=== PATIENT | female | born 1955 | race Caucasian/White ===

== ENCOUNTER 2016-12-28 13:53 | Observation (INO) | payer BC, MEDICARE, OTHER ==
[~2016-12-28] VITALS: Ht 160 cm; Wt 75.5 kg
[2016-12-28] VITALS (8 sets, daily range): BP systolic 127–194; BP diastolic 60–93; PULSE 60–82; RESP 17–20; TEMP 97.8–98.2; O2SAT 96–99
[~2016-12-28 13:53] MED LIST: BUPR-197; COUG100S2; ENDO5TAB6; LEVO.05; METF-324; PROM25SU8; ROSI1TAB24; TOPR25TA2; [UNRECOGNIZED DRUG - CODE]; [UNRECOGNIZED DRUG - OTHER]; [UNRECOGNIZED DRUG - OTHER]
--- NOTE | 2016-12-28 14:36 | PD ---
HPI Chief Complaint: Chest Pain Time Seen by Provider: 14:35 Travel History International Travel<30 days: No Contact w/Intl Traveler<30days: No Traveled to known affect area: No History of Present Illness HPI 61-year-old female came to the emergency room with history of left-sided chest pain that started since noon today. Patient points to her left chest just below her left breast. No radiation of the pain. She describes this as a sharp pain. No aggravating or relieving factors. Patient says that last night she had a big argument with her youngest daughter and she cried a lot the entire night. At noon is when she started noticing this pain. No history of shortness of breath, syncopal episode or diaphoresis. No history of acute coronary syndrome or coronary artery disease. Patient is not a smoker. Vitals are stable. Patient was seen by the provider in triage and workup was initiated. She has history of chronic low back pain and uses a patch but says that today if the patch is not really helping her. She is also complaining of nausea. [facility] Past Medical History Narrative Medical List of her past medical, surgical, social and family history has been reviewed from the nursing note. Depression: Yes Diabetes: Yes Diminished Hearing: No Hypertension: Yes Past Surgical History Cholecystectomy: Yes Hysterectomy: Yes Neurologic Surgery: Yes (LOW BACK SURGERY) Social History Alcohol Use: No Tobacco Use: No Allergies-Medications (Allergen,Severity, Reaction): Coded Allergies: Morphine (Verified Allergy, Mild, RASH, 12/28/16) Latex (Verified Allergy, Unknown, rash, 12/28/16) Comments List of her allergies are reviewed from the nursing note. Reported Meds & Prescriptions Reported Meds & Active Scripts Active Reported Butrans Patch 168 HR (Buprenorphine Patch 168 HR) 5 Mcg/Hr Patch 1 Patch T- DERMAL Q7D Aspirin 81 (Aspirin) 81 Mg Tabdr 81 Mg PO DAILY Metoprolol Tartrate 25 Mg Tab 25 Mg PO DAILY Januvia (Sitagliptin Phosphate) 100 Mg Tab 100 Mg PO DAILY Esomeprazole DR 40 Mg Capdr 40 Mg PO DAILY Levothyroxine (Levothyroxine Sodium) 50 Mcg Tab 50 Mcg PO DAILY Ibuprofen 800 Mg Tab 800 Mg PO QID Atorvastatin (Atorvastatin Calcium) 10 Mg Tab 10 Mg PO DAILY Narrative Medication List of her home medications reviewed from the nursing note. Review of Systems Except as stated in HPI: all other systems reviewed are Neg Physical Exam Narrative GENERAL: Awake, alert, moderate distress SKIN: Warm and dry. HEAD: Atraumatic. Normocephalic. EYES: Pupils equal and round. No scleral icterus. No injection or drainage. ENT: No nasal bleeding or discharge. Mucous membranes pink and moist. NECK: Trachea midline. No JVD. CARDIOVASCULAR: Regular rate and rhythm. No murmur appreciated. RESPIRATORY: No accessory muscle use. Clear to auscultation. Breath sounds equal bilaterally. GASTROINTESTINAL: Abdomen soft, non-tender, nondistended. Hepatic and splenic margins not palpable. MUSCULOSKELETAL: No obvious deformities. No clubbing. No cyanosis. No edema. Tenderness on palpation of the left chest wall NEUROLOGICAL: Awake and alert. No obvious cranial nerve deficits. Motor grossly within normal limits. Normal speech. PSYCHIATRIC: Appropriate mood and affect; insight and judgment normal. Data Data Last Documented VS Vital Signs Date Time Temp Pulse Resp B/P Pulse Ox O2 Delivery O2 Flow Rate FiO2 12/28/16 14:30 81 17 98 Room Air 12/28/16 13:58 98.2 194/93 Orders Electrocardiogram (12/28/16 14:00) Complete Blood Count With Diff (12/28/16 14:00) Basic Metabolic Panel (Bmp) (12/28/16 14:00) Ckmb (Isoenzyme) Profile (12/28/16 14:00) Troponin I (12/28/16 14:00) Chest, Single Ap (12/28/16 14:00) Aspirin Chew (Aspirin Chew) (12/28/16 15:00) Ketorolac Inj (Toradol Inj) (12/28/16 15:00) Ondansetron Inj (Zofran Inj) (12/28/16 15:15) CKMB (12/28/16 14:30) CKMB% (12/28/16 14:30) Admit Order (Ed Use Only) (12/28/16 15:32) Labs Laboratory Tests Test 12/28/16 12/28/16 14:30 15:10 White Blood Count 5.5 TH/MM3 Red Blood Count 4.28 MIL/MM3 Hemoglobin 12.7 GM/DL Hematocrit 36.1 % Mean Corpuscular Volume 84.4 FL Mean Corpuscular Hemoglobin 29.5 PG Mean Corpuscular Hemoglobin 35.0 % Concent Red Cell Distribution Width 12.9 % Platelet Count 157 TH/MM3 Mean Platelet Volume 8.6 FL Neutrophils (%) (Auto) 44.4 % Lymphocytes (%) (Auto) 42.5 % Monocytes (%) (Auto) 10.2 % Eosinophils (%) (Auto) 2.5 % Basophils (%) (Auto) 0.4 % Neutrophils # (Auto) 2.5 TH/MM3 Lymphocytes # (Auto) 2.3 TH/MM3 Monocytes # (Auto) 0.6 TH/MM3 Eosinophils # (Auto) 0.1 TH/MM3 Basophils # (Auto) 0.0 TH/MM3 CBC Comment DIFF FINAL Differential Comment Sodium Level 137 MEQ/L Potassium Level 3.8 MEQ/L Chloride Level 103 MEQ/L Carbon Dioxide Level 23.8 MEQ/L Anion Gap 10 MEQ/L Blood Urea Nitrogen 15 MG/DL Creatinine 0.77 MG/DL Estimat Glomerular Filtration 77 ML/MIN Rate Random Glucose 306 MG/DL Calcium Level 9.1 MG/DL Total Creatine Kinase 210 U/L 202 U/L Creatine Kinase MB 1.0 NG/ML Creatine Kinase MB % 0.5 % Troponin I LESS THAN 0.02 LESS THAN 0.02 NG/ML NG/ML MDM Medical Decision Making Medical Screen Exam Complete: Yes Emergency Medical Condition: Yes Medical Record Reviewed: Yes Interpretation(s) Twelve-lead EKG was reviewed by me. Normal sinus rhythm, left axis deviation, anteroseptal T-wave inversions. Heart rate of 68 bpm. Differential Diagnosis ACS, non-STEMI, chest wall pain Narrative Course 3:05 PM awaiting for the blood test results to come back. I have ordered 2 baby aspirin's to be sure that the patient. I have ordered IV Toradol for her chest pain and back pain in the meanwhile. Patient does have some risk factors including age and hypertension. 3:33 PM blood test results of back and within normal limits. I will admit her to the chest pain center given her risk factors. Patient said her last stress test was 2 years ago in [place]. Patient is comfortable with this plan. Procedures EKG Prior to Arrival: Yes Diagnosis Primary Impression: Chest pain Qualified Code: R07.9 - Chest pain, unspecified type Admitting Information Admitting Physician Requests: Observation Kelsey Arroyo MD Dec 28, 2016 14:36
[2016-12-28] MEDS ORDERED: METO25TA3 PO (14:42)
[2016-12-28] MEDS ORDERED: IBUP800T23 PO (14:42)
[2016-12-28] MEDS ORDERED: SITA1TAB2 PO (14:42)
[2016-12-28] MEDS ORDERED: ASPI-110 PO (14:42)
[2016-12-28] MEDS ORDERED: ATOR10TA15 PO (14:42)
[2016-12-28] MEDS ORDERED: BUTR5DIS T-DERMAL (14:42)
[2016-12-28] MEDS ORDERED: LEVO50TA4 PO (14:42)
[2016-12-28] MEDS ORDERED: ESOM1CAP16 PO (14:42)
--- NOTE | 2016-12-28 14:49 | RADRPT ---
EXAM DATE/TIME: 12/28/2016 14:35 [facility] COMPARISON: No previous studies available for comparison. INDICATIONS : Lower left chest pain. MEDICAL HISTORY : Asthma. SURGICAL HISTORY : None. ENCOUNTER: Initial ACUITY: 1 day PAIN SCORE: 8/10 LOCATION: Left lower chest FINDINGS: A single view of the chest demonstrates the lungs to be symmetrically aerated without evidence of mas s, infiltrate or effusion. The cardiomediastinal contours are unremarkable. Osseous structures are intact. CONCLUSION: No acute disease. Marcus Khan MD FACR on December 28, 2016 at 14:47 Board Certified Radiologist. This report was verified electronically.
[2016-12-28] MEDS ORDERED: ASPIRIN 81 MG CHEW TAB CHEW ONE (15:00)
[2016-12-28] MEDS ORDERED: KETOROLAC TROMETHAMINE 30 MG/ML (IVP) VIAL IV PUSH ONE (15:00)
[2016-12-28 15:01] LABS: AUTOMATED NEUTROPHIL # 2.5 TH/MM3 (1.8-7.7); BASOPHIL % 0.4 % (0.0-2.0); EOSINOPHIL # 0.1 TH/MM3 (0-0.4); EOSINOPHIL % 2.5 % (0.0-4.0); HEMATOCRIT 36.1 % (35.0-46.0); HEMO FLAGS DIFF FINAL; LYMPH % 42.5 % (9.0-44.0); LYMPHOCYTE # 2.3 TH/MM3 (1.0-4.8); MEAN CELL VOLUME 84.4 FL (80.0-100.0); MEAN CORPUSCULAR HEMOGLOBIN 29.5 PG (27.0-34.0); MONO % 10.2 % (0.0-8.0); NEUT % 44.4 % (16.0-70.0); PLATELET COUNT 157 TH/MM3 (150-450); RED BLOOD COUNT 4.28 MIL/MM3 (4.00-5.30); RED CELL DISTRIBUTION WIDTH 12.9 % (11.6-17.2); WHITE BLOOD COUNT 5.5 TH/MM3 (4.0-11.0)
[2016-12-28 15:07] LABS: ANION GAP 10 MEQ/L (5-15); BICARBONATE 23.8 MEQ/L (21.0-32.0); BLOOD UREA NITROGEN 15 MG/DL (7-18); CHLORIDE 103 MEQ/L (98-107); GLOMERULAR FILTRATION RATE 77 ML/MIN (>89); POTASSIUM 3.8 MEQ/L (3.5-5.1); SODIUM (NA) 137 MEQ/L (136-145)
[2016-12-28 15:10] LABS: CREATINE KINASE 210 U/L (26-192)
[2016-12-28] MEDS ORDERED: ONDANSETRON HCL 4 MG/2 ML VIAL IV PUSH ONE (15:15)
[2016-12-28] MEDS ORDERED: SODIUM CHLORIDE 0.9% FLUSH 5 ML FLUSH IVF PRN (16:00)
[2016-12-28] MEDS ORDERED: ACETAMINOPHEN 500 MG CPLT PO PRN (16:00)
[2016-12-28] MEDS ORDERED: ONDANSETRON HCL 4 MG/2 ML VIAL IV PRN (16:00)
[2016-12-28] MEDS ORDERED: ALPRAZolam 0.25 MG TAB PO PRN (16:00)
[2016-12-28] MEDS ORDERED: GLUCAGON 1 MG/ML VIAL IM/SQ PRN (16:15)
[2016-12-28] MEDS ORDERED: cloNIDine HCL 0.1 MG TAB PO PRN (16:15)
[2016-12-28] MEDS ORDERED: DEXTROSE 50% IN WATER 50 ML VIAL(D50) IV PRN (16:15)
[2016-12-28] MEDS ORDERED: RESP: ALBUTEROL 2.5 MG/IPRATROPIUM 0.5 MG NEB (PRN) INH (16:15)
--- NOTE | 2016-12-28 16:21 | HHI.HP ---
[facility] Primary Care Physician Nick Bourgeois MD Chief Complaint Chest pain History of Present Illness This is a 61-year-old female that presents to the ED with a complaint of a chest discomfort that began around noon today. It is still there. She states that there is a tender spot to touch. She states it feels like a broken rib. Patient states she's had issues like this in the past. She then states "I get this all the time when I get upset." She had been crying all night long after getting into an argument with her daughter yesterday. In the past she states she always goes to the hospital when she has the discomfort is although she readily admits to having him resume regularly at least once a week for several years. She has recently moved to this area. No associated shortness of breath , nausea, or diaphoresis. Denies history of CAD. She states that she has followed up with a technical analyst on annual basis for some time and has a chemical stress test and they have always been normal. Review of Systems General: Patient denies fevers, chills recent, and recent travel HEENT: Patient denies headache, sore throat, difficulty swallowing. Cardiovascular: Has the chest discomfort as mentioned above. Denies sensation of heart beating rapidly or irregularly. No syncope. Respiratory: Denies shortness of breath or inspirational chest discomfort. Denies coughing wheezing or hemoptysis. GI: Patient denies nausea, vomiting, diarrhea, abdominal pain, bloody stools. Musculoskeletal: Patient denies joint pain or edema. Denies calf pain or edema. Neurovascular: Patient denies numbness, tingling, weakness in extremities. Denies headache. Endocrine: Denies polyuria and polydipsia. Hematologic: Denies easy bruising. Skin: Denies rash or itching. Past Family Social History Allergies: Coded Allergies: Morphine (Verified Allergy, Mild, RASH, 12/28/16) Latex (Verified Allergy, Unknown, rash, 12/28/16) Past Medical History Hypertension, hyperlipidemia, diabetes, anxiety, depression, and chronic back pain. Denies known CAD. Past Surgical History Noncontributory. Reported Medications Reported Meds & Active Scripts Active Reported Butrans Patch 168 HR (Buprenorphine Patch 168 HR) 5 Mcg/Hr Patch 1 Patch T- DERMAL Q7D Aspirin 81 (Aspirin) 81 Mg Tabdr 81 Mg PO DAILY Metoprolol Tartrate 25 Mg Tab 25 Mg PO DAILY Januvia (Sitagliptin Phosphate) 100 Mg Tab 100 Mg PO DAILY Esomeprazole DR 40 Mg Capdr 40 Mg PO DAILY Levothyroxine (Levothyroxine Sodium) 50 Mcg Tab 50 Mcg PO DAILY Ibuprofen 800 Mg Tab 800 Mg PO QID Atorvastatin (Atorvastatin Calcium) 10 Mg Tab 10 Mg PO DAILY Active Ordered Medications Current Medications Medications (Trade) Dose Ordered Sig/Saran Route Start Time Stop Time Status Last Admin (NS Flush) 2 ml UNSCH PRN IVF 12/28/16 16:00 UNV (NS Flush) 2 ml BID IVF 12/28/16 21:00 UNV (Tylenol) 500 mg Q4H PRN PO 12/28/16 16:00 UNV (Zofran Inj) 4 mg Q6H PRN IV 12/28/16 16:00 UNV (Protonix) 40 mg DAILY PO 12/28/16 16:00 UNV (Aspirin) 325 mg DAILY PO 12/29/16 09:00 UNV (Xanax) 0.25 mg Q8H PRN PO 12/28/16 16:00 UNV (Lipitor) 10 mg DAILY PO 12/29/16 09:00 UNV (Synthroid) 50 mcg DAILY PO 12/29/16 09:00 UNV (Lopressor) 25 mg DAILY PO 12/29/16 09:00 UNV Family History Denies family history of CAD. Social History Patient does not smoke, drink alcohol, or use illicit drugs. Physical Exam Vital Signs Vital Signs Date Time Temp Pulse Resp B/P Pulse Ox O2 Delivery O2 Flow Rate FiO2 12/28/16 16:01 17 12/28/16 16:00 97.8 82 17 134/65 99 Room Air 12/28/16 14:30 81 17 98 Room Air 12/28/16 13:58 98.2 75 18 194/93 96 Physical Exam GENERAL: This is a well-nourished, well-developed patient, in no apparent distress. Patient speaks in clear complete sentences. Patient is pleasant however she begins to cry when discussing her argument with her daughter. HEENT: Head is atraumatic and normocephalic. Neck is supple without lymphadenopathy and trachea is midline. No JVD or carotid bruits. CARDIOVASCULAR: Regular rate and rhythm without murmurs, gallops, or rubs. RESPIRATORY: Clear to auscultation. Breath sounds equal bilaterally. No wheezes , rales, or rhonchi. Chest wall is tender in the left lower chest wall area. This is worsening the discomfort that she presented to the ED for. No use of accessory muscles. GASTROINTESTINAL: Abdomen is nontender, nondistended. Abdomen soft. No obvious pulsatile mass or bruit. No CVA tenderness. Strong femoral pulses bilaterally. Normal bowel sounds in all quadrants. MUSCULOSKELETAL: Patient is moving upper and lower extremities freely. No calf tenderness or edema, no Homans sign. Strong pulses in upper and lower extremities. NEUROLOGICAL: Patient is alert and oriented. Cranial nerves 2-12 are grossly intact. No focal deficits and speech is clear. SKIN: No rash and turgor is normal. Laboratory Laboratory Tests Test 12/28/16 14:30 White Blood Count 5.5 Red Blood Count 4.28 Hemoglobin 12.7 Hematocrit 36.1 Mean Corpuscular Volume 84.4 Mean Corpuscular Hemoglobin 29.5 Mean Corpuscular Hemoglobin 35.0 Concent Red Cell Distribution Width 12.9 Platelet Count 157 Mean Platelet Volume 8.6 Neutrophils (%) (Auto) 44.4 Lymphocytes (%) (Auto) 42.5 Monocytes (%) (Auto) 10.2 Eosinophils (%) (Auto) 2.5 Basophils (%) (Auto) 0.4 Neutrophils # (Auto) 2.5 Lymphocytes # (Auto) 2.3 Monocytes # (Auto) 0.6 Eosinophils # (Auto) 0.1 Basophils # (Auto) 0.0 CBC Comment DIFF FINAL Differential Comment Sodium Level 137 Potassium Level 3.8 Chloride Level 103 Carbon Dioxide Level 23.8 Anion Gap 10 Blood Urea Nitrogen 15 Creatinine 0.77 Estimat Glomerular Filtration 77 Rate Random Glucose 306 Calcium Level 9.1 Total Creatine Kinase 210 Creatine Kinase MB 1.0 Creatine Kinase MB % 0.5 Troponin I LESS THAN 0.02 Result Diagram: 12/28/16 1430 12/28/16 1430 Imaging Last 24 hours Impressions Chest X-Ray 12/28/16 1400 Signed Impressions: Service Date/Time: Wednesday, December 28, 2016 14:35 - CONCLUSION: No acute disease. Marcus Khan MD FACR Course Initial EKG has sinus rhythm with nonspecific anterolateral ST-T changes. Assessment and Plan Assessment and Plan * Chest pain: Patient will continue to have serial cardiac enzymes and EKGs for ruling out purposes. Her discomfort appears musculoskeletal and also she has had the same type of discomfort for several years at least on a weekly basis and is always had normal stress test which she states she's had at least once a year. She has been seen by Dr. Justin Manrique of cardiology and the chest pain center. She will spend the evening in the chest pain center and if she does rule out she will then proceed with a chemical stress test. She will be discharged home with instructions to follow local physician if her stress test were to be nonischemic. * Hypertension: Continue current medication. * Hyperlipidemia: Continue current medication. * Diabetes: Patient will be on sliding scale coverage while in the chest pain center. She'll be on a diabetic diet until she is nothing by mouth. She should continue her current medications and follow diabetic diet at discharge. Patient is stable at this time. She is agreeable to this plan. Reece Talamantes Dec 28, 2016 16:21
[2016-12-28] MEDS: PANTOPRAZOLE SOD 40 MG DELAYED RELEASE TAB PO SCH (17:09)
[2016-12-28 18:01] LABS: CREATINE KINASE 202 U/L (26-192)
[2016-12-28] MEDS: INSULIN ASPART SUPPLEMENTAL SCALE SQ SCH (21:17)
[2016-12-28] MEDS: SODIUM CHLORIDE 0.9% FLUSH 5 ML FLUSH IVF SCH (21:19)
[2016-12-28 22:18] LABS: CREATINE KINASE 195 U/L (26-192)
[2016-12-29 00:16] VITALS: PULSE 72
[2016-12-29 03:15] VITALS: BP 118/62; PULSE 62; RESP 18; TEMP 98.3; O2SAT 96
[2016-12-29 04:01] VITALS: PULSE 66
[2016-12-29] MEDS ORDERED: LEVOTHYROXINE SODIUM 50 MCG TAB PO SCH (06:00)
[2016-12-29] MEDS: INSULIN ASPART SUPPLEMENTAL SCALE SQ SCH ×2 (06:06→12:48)
[2016-12-29 07:27] VITALS: BP 152/72; PULSE 70; RESP 20; TEMP 97.8; O2SAT 98
--- NOTE | 2016-12-29 07:42 | EKG ---
Date Performed: 12/28/2016 Time Performed: 17:16:30 PTAGE: 61 years EKG: SINUS BRADYCARDIA MODERATE T-WAVE ABNORMALITY, CONSIDER ANTEROLATERAL ISCHEMIA ABNORMAL ECG Since PREVIOUS TRACING , no significant change noted PREVIOUS TRACIN12/28/2016 14.07 DOCTOR: Gini Armendariz Interpretating Date/Time 12/29/2016 07:41:28
[2016-12-29] MEDS: PANTOPRAZOLE SOD 40 MG DELAYED RELEASE TAB PO SCH (08:56)
[2016-12-29] MEDS: SODIUM CHLORIDE 0.9% FLUSH 5 ML FLUSH IVF SCH (08:57)
[2016-12-29] MEDS ORDERED: METOPROLOL TARTRATE 25 MG TAB PO SCH (09:00)
[2016-12-29] MEDS ORDERED: ASPIRIN 325 MG TAB PO SCH (09:00)
[2016-12-29] MEDS ORDERED: ATORVASTATIN 10 MG TAB PO SCH (09:00)
[2016-12-29 10:30] VITALS: PULSE 70
[2016-12-29] MEDS ORDERED: REGADENOSON INJ 0.4 MG/5 ML SYR ONE (11:07)
--- NOTE | 2016-12-29 13:23 | RADRPT ---
EXAM DATE/TIME: 12/29/2016 10:46 [facility] COMPARISON: No previous studies available for comparison. INDICATIONS : Substernal chest pain. Angina. DOSE: 26.6 mCi Tc99m Myoview at stress. 8.2 mCi Tc99m Myoview at rest. 0.4 mg Lexiscan STRESS SYMPTOMS: Chest pain, nausea and headache. EJECTION FRACTION: 67% MEDICAL HISTORY : Hyperparathyroidism. Diabetes mellitus type 2. Anxiety. SURGICAL HISTORY : Cholecystectomy. Hysterectomy. ENCOUNTER: Initial ACUITY: 1 day PAIN SCALE: 6/10 LOCATION: Substernal chest TECHNIQUE: The patient underwent pharmacologic stress with infusion of prescribed dose. Continuous ECG tracing was monitored during stress. Gated SPECT imaging was performed after stress and conventional SPECT i maging was performed at rest. The examination was performed on a SPECT/CT scanner, both attenuation and non-corrected datasets were reviewed. FINDINGS: DISTRIBUTION: The maximum perfused segment at stress is in the midanterior wall. PERFUSION STUDY: The pattern of perfusion at stress is within normal limits. GATED STUDY: There is intact wall motion and thickening without hypokinetic or dyskinetic segments. CONCLUSION: Normal examination. RISK CATEGORY: Low (<1% Annual Mortality Rate) Toney Francis MD on December 29, 2016 at 13:21 Board Certified Radiologist. This report was verified electronically.
--- NOTE | 2016-12-29 13:25 | HHI.DCPOC ---
Discharge Care Plan Diagnosis: (1) Chest pain (2) Hypertension (3) Hyperlipidemia (4) DM (diabetes mellitus) Goals to Promote Your Health * To prevent worsening of your condition and complications * To maintain your health at the optimal level Directions to Meet Your Goals Take your medications as prescribed Follow your dietary instruction Follow activity as directed Keep your appointments as scheduled Take your immunizations and boosters as scheduled If your symptoms worsen call your PCP, if no PCP go to Urgent Care Center or Emergency Room Smoking is Dangerous to Your Health. Avoid second hand smoke Call the 24-hour hour crisis hotline for domestic abuse at Reece Talamantes Dec 29, 2016 13:25
--- NOTE | 2016-12-29 16:59 | EKG ---
Date Performed: 12/28/2016 Time Performed: 20:24:59 PTAGE: 61 years EKG: Sinus rhythm MODERATE T-WAVE ABNORMALITY, CONSIDER ANTERIOR ISCHEMIA ABNORMAL ECG Since PREVIOUS TRACING , no significant change noted PREVIOUS TRACIN12/28/2016 17.16 DOCTOR: Gini Armendariz Interpretating Date/Time 12/29/2016 16:57:12
--- NOTE | 2016-12-29 17:00 | TR ---
Date Performed: 12/29/2016 Time Performed: 11:19:03 DOCTOR: Gini Armendariz DRUG LIST: CLINICAL HISTORY: REASON FOR TEST: CHEST PAIN REASON FOR ENDING: OBSERVATION: CONCLUSION: Lexiscan stress test was performed under standard four minute protocol. Radionuclid e was injected one minute prior to ending the test. No electrocardiographic abormalities were present to suggest ischemia. Nuclear imaging and interpretation are pending. COMMENTS:
--- NOTE | 2017-01-04 13:38 | EKG ---
Date Performed: 12/28/2016 Time Performed: 14:07:50 PTAGE: 61 years EKG: Sinus rhythm NONSPECIFIC T-WAVE ABNORMALITY BORDERLINE ECG NO PREVIOUS TRACING DOCTOR: Justin Manrique Interpretating Date/Time 01/04/2017 13:37:07
== END 2016-12-29 14:35 | disposition home or self-care (01) ==
LOC: NEPA 13:53 → NEDA 15:34 → NEPHCDU 17:35 → NEDA 12-29 01:13
PROVIDERS: ADMIT Internal Medicine Cardiovascular Disease; ATTEND Internal Medicine Cardiovascular Disease
DX: R07.9 Chest pain, unspecified (principal); M54.5 Low back pain; G89.29 Other chronic pain; R11.0 Nausea; E11.9 Type 2 diabetes mellitus without complications; I10 Essential (primary) hypertension; Z79.899 Other long term (current) drug therapy; Z79.84 Long term (current) use of oral hypoglycemic drugs; R94.31 Abnormal electrocardiogram [ECG] [EKG]
CPT/HCPCS: 71010; 78452; 80048; 82550; 82552; 82948; 84484; 85025; 93005; 93017; 96374; 96375; 99285; A9502; G0378; J1815; J1885; J2405; J2785

== ENCOUNTER 2017-01-17 10:09 | Emergency (ER) | payer BC ==
[~2017-01-17] VITALS: Ht 160 cm; Wt 76.0 kg
[~2017-01-17 10:09] MED LIST changes: +ASPI-110 PO; +ATOR10TA15 PO; -BUPR-197; +BUTR5DIS T-DERMAL; -COUG100S2; -ENDO5TAB6; +ESOM1CAP16 PO; +IBUP800T23 PO; -LEVO.05; +LEVO50TA4 PO; -METF-324; +METO25TA3 PO; -PROM25SU8; -ROSI1TAB24; +SITA1TAB2 PO; -TOPR25TA2; -[UNRECOGNIZED DRUG - CODE]; -[UNRECOGNIZED DRUG - OTHER]; -[UNRECOGNIZED DRUG - OTHER]
[2017-01-17 10:10] VITALS: BP 164/74; PULSE 71; RESP 16; TEMP 98.2; O2SAT 98
[2017-01-17 10:18] VITALS: BP 158/74; PULSE 69; RESP 16; TEMP 98.2; O2SAT 98
[2017-01-17] MEDS ORDERED: METF500T PO (10:27)
[2017-01-17] MEDS ORDERED: IBUP800T23 PO (10:28)
[2017-01-17] MEDS ORDERED: SODIUM CHLORIDE 0.9% FLUSH 5 ML FLUSH IVF PRN (10:30)
[2017-01-17] MEDS ORDERED: METO25TA3 PO (10:31)
[2017-01-17] MEDS ORDERED: XOPEAER4 INH (10:36)
[2017-01-17] MEDS ORDERED: CITA10TA4 PO (10:36)
[2017-01-17] MEDS ORDERED: ARIP1TAB11 PO (10:36)
[2017-01-17 10:37] VITALS: O2SAT 98
[2017-01-17 10:41] VITALS: BP_SYST 138; BP_SYST 149; BP_DIAS 68; BP_DIAS 72
--- NOTE | 2017-01-17 10:43 | RADRPT ---
EXAM DATE/TIME: 01/17/2017 10:33 [facility] COMPARISON: CHEST SINGLE AP, December 28, 2016, 14:35. INDICATIONS : Chest Pain, Short of Breath. MEDICAL HISTORY : Asthma. Hyperparathyroidism. Diabetes mellitus type 2. SURGICAL HISTORY : Cholecystectomy. Hysterectomy. ENCOUNTER: Initial ACUITY: 1 day PAIN SCORE: 7/10 LOCATION: Bilateral chest FINDINGS: A single view of the chest demonstrates the lungs to be symmetrically aerated without evidence of mas s, infiltrate or effusion. The cardiomediastinal contours are unremarkable. Osseous structures are intact. CONCLUSION: No acute disease. Derrell Haney MD on January 17, 2017 at 10:42 Board Certified Radiologist. This report was verified electronically.
[2017-01-17] MEDS ORDERED: ASPIRIN 325 MG TAB PO ONE (10:45)
[2017-01-17] MEDS ORDERED: NITROGLYCERIN 0.4 MG SL 25 TABS/BTL SL ONE (10:45)
[2017-01-17 11:10] LABS: AUTOMATED NEUTROPHIL # 4.2 TH/MM3 (1.8-7.7); BASOPHIL # 0.1 TH/MM3 (0-0.2); BASOPHIL % 0.8 % (0.0-2.0); EOSINOPHIL # 0.1 TH/MM3 (0-0.4); HEMATOCRIT 36.9 % (35.0-46.0); HEMO FLAGS DIFF FINAL; LYMPH % 28.4 % (9.0-44.0); LYMPHOCYTE # 1.9 TH/MM3 (1.0-4.8); MEAN CELL VOLUME 84.8 FL (80.0-100.0); MEAN CORPUSCULAR HEMOGLOBIN 28.9 PG (27.0-34.0); MEAN CORPUSCULAR HGB CONC 34.1 % (32.0-36.0); MONO % 7.4 % (0.0-8.0); NEUT % 61.4 % (16.0-70.0); PLATELET COUNT 161 TH/MM3 (150-450); RED BLOOD COUNT 4.35 MIL/MM3 (4.00-5.30); RED CELL DISTRIBUTION WIDTH 13.4 % (11.6-17.2); WHITE BLOOD COUNT 6.8 TH/MM3 (4.0-11.0)
[2017-01-17] MEDS ORDERED: ONDANSETRON HCL 4 MG/2 ML VIAL IV PUSH ONE (11:15)
[2017-01-17 11:20] LABS: PROTHROMBIN TIME - PATIENT 10.6 SEC (9.8-11.6)
[2017-01-17 11:21] LABS: APTT (PATIENT) 23.2 SEC (24.3-30.1)
[2017-01-17 11:39] LABS: ALKALINE PHOSPHATASE 98 U/L (45-117); ALT (GPT) 22 U/L (10-53); ANION GAP 13 MEQ/L (5-15); AST (GOT) 36 U/L (15-37); BICARBONATE 22.7 MEQ/L (21.0-32.0); BLOOD UREA NITROGEN 16 MG/DL (7-18); CHLORIDE 105 MEQ/L (98-107); CREATINE KINASE 133 U/L (26-192); GLOMERULAR FILTRATION RATE 68 ML/MIN (>89); MAGNESIUM 1.5 MG/DL (1.5-2.5); SODIUM (NA) 141 MEQ/L (136-145); TOTAL BILIRUBIN ADULT 0.4 MG/DL (0.2-1.0)
[2017-01-17 11:51] LABS: CKMB LESS THAN 0.5 NG/ML (0.5-3.6)
[2017-01-17 11:54] LABS: POTASSIUM 4.1 MEQ/L (3.5-5.1)
--- NOTE | 2017-01-17 12:16 | EKG ---
Date Performed: 01/17/2017 Time Performed: 10:17:24 PTAGE: 61 years EKG: Sinus rhythm Nonspecific T wave changes ABNORMAL ECG INTERPRETATION BASED ON A DEFAULT AGE OF 40 YEARS No signifi cant change from prior electrocardiogram. PREVIOUS TRACING : 12/28/2016 20.24 DOCTOR: Godwin Yung Interpretating Date/Time 01/17/2017 12:14:17
[2017-01-17 12:36] VITALS: BP 131/68; PULSE 58; RESP 14; O2SAT 98
--- NOTE | 2017-01-17 12:57 | PD ---
HPI Chief Complaint: Chest Pain Time Seen by Provider: 10:22 Travel History International Travel<30 days: No Contact w/Intl Traveler<30days: No Traveled to known affect area: No History of Present Illness HPI 61-year-old female presents with intermittent sharp pain in her chest with nonbloody emesis and intermittent headache. She states that she was here with this in December and had a negative stress test. She states 2 years ago she had a heart catheterization in [place] that was normal when she also had chest pain. She denies following with a electric meter technician currently. She denies taking an aspirin yet today. She states her headache is nearly resolved but she is concerned about the pain in her chest today. She states that she has no specific modifying factors. She denies any recent travel or history of blood clots. Quality Sharp. Severity is moderate. PFSH Past Medical History Depression: Yes Heart Rhythm Problems: No Cardiac Catheterization: No Cardiovascular Problems: Yes High Cholesterol: No Chest Pain: Yes Congestive Heart Failure: No Diabetes: Yes Patient Takes Glucophage: Yes Diminished Hearing: No Hypertension: Yes Thyroid Disease: Yes ?: Not Past Surgical History Cholecystectomy: Yes Coronary Artery Bypass Graft: No Hysterectomy: Yes Neurologic Surgery: Yes (repair of brain aneurysm) Social History Alcohol Use: No Tobacco Use: No Substance Use: No Allergies-Medications (Allergen,Severity, Reaction): Coded Allergies: Morphine (Verified Allergy, Mild, RASH, 01/17/17) Latex (Verified Allergy, Unknown, rash, 01/17/17) Reported Meds & Prescriptions Reported Meds & Active Scripts Active Reported Citalopram (Citalopram Hydrobromide) 10 Mg Tab 10 Mg PO DAILY Aripiprazole 5 Mg Tab 5 Mg PO HS Xopenex Hfa 15 GM Inh (Levalbuterol 15 GM Inh) 45 Mcg/Act Aer 45 Mcg INH DAILY Shake well before using. (1 puff = 45 mcg) Metoprolol Tartrate 25 Mg Tab 25 Mg PO BID Ibuprofen 800 Mg Tab 800 Mg PO BID PRN Metformin (Metformin HCl) 500 Mg Tab 500 Mg PO BID With meals Butrans Patch 168 HR (Buprenorphine Patch 168 HR) 5 Mcg/Hr Patch 1 Patch T- DERMAL Q7D Aspirin 81 (Aspirin) 81 Mg Tabdr 81 Mg PO DAILY Januvia (Sitagliptin Phosphate) 100 Mg Tab 100 Mg PO DAILY Esomeprazole DR 40 Mg Capdr 40 Mg PO DAILY Levothyroxine (Levothyroxine Sodium) 50 Mcg Tab 50 Mcg PO DAILY Atorvastatin (Atorvastatin Calcium) 10 Mg Tab 10 Mg PO DAILY Review of Systems Except as stated in HPI: all other systems reviewed are Neg Physical Exam Narrative GENERAL: Well-nourished, well-developed patient. SKIN: Warm and dry. HEAD: Normocephalic and atraumatic. EYES: No injection or drainage. ENT: No nasal drainage noted. NECK: Supple, trachea midline. CARDIOVASCULAR: Regular rate and rhythm RESPIRATORY: Breath sounds equal bilaterally. No accessory muscle use. GASTROINTESTINAL: Abdomen soft, non-tender, nondistended. EXTREMITIES: No edema. NEUROLOGICAL: Awake and alert. Motor and sensory grossly within normal limits. Normal speech. Data Data Last Documented VS Vital Signs Date Time Temp Pulse Resp B/P Pulse Ox O2 Delivery O2 Flow Rate FiO2 01/17/17 12:36 58 14 131/68 98 Room Air 01/17/17 10:18 98.2 Orders Electrocardiogram (01/17/17 10:23) B-Type Natriuretic Peptide (01/17/17 10:23) Ckmb (Isoenzyme) Profile (01/17/17 10:23) Complete Blood Count With Diff (01/17/17 10:23) Comprehensive Metabolic Panel (01/17/17 10:23) Magnesium (Mg) (01/17/17 10:23) Prothrombin Time / Inr (Pt) (01/17/17 10:23) Act Partial Throm Time (Ptt) (01/17/17 10:23) Troponin I (01/17/17 10:23) Chest, Single Ap (01/17/17 10:23) Ecg Monitoring (01/17/17 10:23) Bilateral Bp Monitoring (01/17/17 10:23) Iv Access Insert/Monitor (01/17/17 10:23) Oximetry (01/17/17 10:23) Sodium Chloride 0.9% Flush (Ns Flush) (01/17/17 10:30) Aspirin (Aspirin) (01/17/17 10:45) Nitroglycerin Sl (Nitrostat Sl) (01/17/17 10:45) Ondansetron Inj (Zofran Inj) (01/17/17 11:15) CKMB (01/17/17 11:00) CKMB% (01/17/17 11:00) Electrocardiogram (01/17/17 14:00) Ckmb (Isoenzyme) Profile (01/17/17 14:00) Troponin I (01/17/17 14:00) Labs Laboratory Tests Test 01/17/17 01/17/17 11:00 12:40 White Blood Count 6.8 TH/MM3 Red Blood Count 4.35 MIL/MM3 Hemoglobin 12.6 GM/DL Hematocrit 36.9 % Mean Corpuscular Volume 84.8 FL Mean Corpuscular Hemoglobin 28.9 PG Mean Corpuscular Hemoglobin 34.1 % Concent Red Cell Distribution Width 13.4 % Platelet Count 161 TH/MM3 Mean Platelet Volume 8.7 FL Neutrophils (%) (Auto) 61.4 % Lymphocytes (%) (Auto) 28.4 % Monocytes (%) (Auto) 7.4 % Eosinophils (%) (Auto) 2.0 % Basophils (%) (Auto) 0.8 % Neutrophils # (Auto) 4.2 TH/MM3 Lymphocytes # (Auto) 1.9 TH/MM3 Monocytes # (Auto) 0.5 TH/MM3 Eosinophils # (Auto) 0.1 TH/MM3 Basophils # (Auto) 0.1 TH/MM3 CBC Comment DIFF FINAL Differential Comment Prothrombin Time 10.6 SEC Prothromb Time International 1.0 RATIO Ratio Activated Partial 23.2 SEC Thromboplast Time Sodium Level 141 MEQ/L Potassium Level 4.1 MEQ/L Chloride Level 105 MEQ/L Carbon Dioxide Level 22.7 MEQ/L Anion Gap 13 MEQ/L Blood Urea Nitrogen 16 MG/DL Creatinine 0.85 MG/DL Estimat Glomerular Filtration 68 ML/MIN Rate Random Glucose 218 MG/DL Calcium Level 8.8 MG/DL Magnesium Level 1.5 MG/DL Total Bilirubin 0.4 MG/DL Aspartate Amino Transf 36 U/L (AST/SGOT) Alanine Aminotransferase 22 U/L (ALT/SGPT) Alkaline Phosphatase 98 U/L Total Creatine Kinase 133 U/L 110 U/L Creatine Kinase MB LESS THAN 0.5 NG/ML Troponin I LESS THAN 0.02 LESS THAN 0.02 NG/ML NG/ML B-Type Natriuretic Peptide 7 PG/ML Total Protein 7.9 GM/DL Albumin 3.6 GM/DL MDM Medical Decision Making Medical Screen Exam Complete: Yes Emergency Medical Condition: Yes Medical Record Reviewed: Yes (past history confirmed) Interpretation(s) CBC & BMP Diagram 01/17/17 11:00 Last 24 hours Impressions Chest X-Ray 01/17/17 1023 Signed Impressions: Service Date/Time: Tuesday, January 17, 2017 10:33 - CONCLUSION: No acute disease. Derrell Haney MD EKG shows T-wave inversion laterally which is unchanged from prior without new changes Repeat EKG is unchanged Differential Diagnosis Musculoskeletal, gastritis, depression, atypical cardiac Narrative Course Will check blood work, chest x-ray, EKG ER workup no acute, will discuss with cardiology for outpatient follow-up Repeat enzymes are negative, Patient denies any new complaints and states that they are feeling better. Patient happy with care, all questions answered. Patient knows that follow up is incumbent on them and to return to the emergency room immediately if new or worsening symptoms develop. Patient given strict return precautions, vitals reviewed and are normal, agrees to further workup as an outpatient. Physician Communication Physician Communication dr cabrera agrees to discharge if delta troponin is negative Diagnosis Primary Impression: Chest pain Qualified Code: R07.9 - Chest pain, unspecified type Patient Instructions: General Instructions Additional Instructions: Return as needed, Tylenol as needed, follow with primary tomorrow, set up a electric meter technician Med/Other Pt SpecificInfo: No Change to Meds Disposition: 01 DISCHARGE HOME Condition: Stable Elena Yip MD Jan 17, 2017 12:57
[2017-01-17 13:10] LABS: CREATINE KINASE 110 U/L (26-192)
--- NOTE | 2017-01-18 15:06 | EKG ---
Date Performed: 01/17/2017 Time Performed: 12:56:30 PTAGE: 61 years EKG: SINUS BRADYCARDIA MINIMAL VOLTAGE CRITERIA FOR LVH, CONSIDER NORMAL VARIANT MODERATE T-WAVE ABNORMALITY, CONSIDER ANTERIOR ISCHEMIA ABNORMAL ECG PREVIOUS TRACING : 01/17/2017 10.17 Compared to the previous tracing, SINUS BRADYCARDIA IS NEW DOCTOR: Osmany Carrion Interpretating Date/Time 01/18/2017 15:04:06
== END 2017-01-17 14:13 | disposition home or self-care (01) ==
LOC: NEPC 10:09
DX: R07.9 Chest pain, unspecified (principal); I10 Essential (primary) hypertension; E11.9 Type 2 diabetes mellitus without complications; R51 Headache; R00.1 Bradycardia, unspecified; R06.02 Shortness of breath; Z79.84 Long term (current) use of oral hypoglycemic drugs
CPT/HCPCS: 71010; 80053; 82550; 82552; 83735; 83880; 84484; 85025; 85610; 85730; 93005; 96374; 99285; J2405

== ENCOUNTER 2018-03-05 19:28 | Emergency (ER) | payer BC ==
[~2018-03-05] VITALS: Ht 160 cm; Wt 70.0 kg
[~2018-03-05 19:28] MED LIST changes: +ARIP1TAB11 PO; -ASPI-110 PO; +ASPI1TAB57 PO; +CITA10TA4 PO; +IBUP1TAB7 PO; -IBUP800T23 PO; +METF500T PO; +XOPEAER4 INH
[2018-03-05 19:58] VITALS: BP 122/57; PULSE 72; RESP 16; TEMP 98.6; O2SAT 98
[2018-03-05] MEDS ORDERED: predniSONE 50 MG TAB PO ONE (20:15)
[2018-03-05] MEDS ORDERED: AMOX875T PO (20:17)
--- NOTE | 2018-03-05 20:18 | PD ---
HPI Chief Complaint: Respiratory Symptoms Time Seen by Provider: 20:04 Travel History International Travel<30 days: No Contact w/Intl Traveler<30days: No Traveled to known affect area: No History of Present Illness HPI Patient is a 62-year-old female presenting to the emergency department for evaluation of cough, nasal congestion, sore throat, headache. Patient states the headache is dull and frontal in nature. She denies any fevers, visual changes, chest pain, abdominal pain, nausea, vomiting. She states her symptoms started on . Patient states that she has been using Robitussin for diabetics for her cough. She also uses her albuterol inhaler as well as nebulizer treatments. Her last use of those was on . Symptom onset was gradual, symptoms are mild to moderate nature. There are no alleviating factors. PFSH Past Medical History Asthma: Yes Depression: Yes Cardiovascular Problems: Yes Chest Pain: Yes Diabetes: Yes Patient Takes Glucophage: Yes Hypertension: Yes Immunizations Current: Yes Thyroid Disease: Yes Tetanus Vaccination: < 5 Years Influenza Vaccination: No Past Surgical History Cholecystectomy: Yes Coronary Artery Bypass Graft: No Hysterectomy: Yes Neurologic Surgery: Yes (repair of brain aneurysm) Social History Alcohol Use: No Tobacco Use: No Substance Use: No Allergies-Medications (Allergen,Severity, Reaction): Coded Allergies: morphine (Unverified Allergy, Mild, RASH, 06/15/17) latex (Unverified Allergy, Unknown, rash, 06/15/17) Reported Meds & Prescriptions Reported Meds & Active Scripts Active Reported Citalopram (Citalopram Hydrobromide) 10 Mg Tab 10 Mg PO DAILY Aripiprazole 5 Mg Tab 5 Mg PO HS Xopenex Hfa 15 GM Inh (Levalbuterol 15 GM Inh) 45 Mcg/Act Aer 45 Mcg INH DAILY Shake well before using. (1 puff = 45 mcg) Metoprolol Tartrate 25 Mg Tab 25 Mg PO BID Ibuprofen 800 Mg Tab 800 Mg PO BID PRN Metformin (Metformin HCl) 500 Mg Tab 500 Mg PO BID With meals Butrans Patch 168 HR (Buprenorphine Patch 168 HR) 5 Mcg/Hr Patch 1 Patch T- DERMAL Q7D Aspirin 81 (Aspirin) 81 Mg Tabdr 81 Mg PO DAILY Januvia (Sitagliptin Phosphate) 100 Mg Tab 100 Mg PO DAILY Esomeprazole DR 40 Mg Capdr 40 Mg PO DAILY Levothyroxine (Levothyroxine Sodium) 50 Mcg Tab 50 Mcg PO DAILY Atorvastatin (Atorvastatin Calcium) 10 Mg Tab 10 Mg PO DAILY Review of Systems Except as stated in HPI: all other systems reviewed are Neg General / Constitutional: Positive: Chills HENT: Positive: Headaches, Sore Throat, Rhinitis, Congestion, No: Earache Cardiovascular: No: Chest Pain or Discomfort Respiratory: Positive: Cough, No: Shortness of Breath, Wheezing Gastrointestinal: No: Nausea, Abdominal Pain Physical Exam Narrative GENERAL: Well-developed, well-nourished, alert female. Presenting in no acute distress. SKIN: Warm and dry. HEAD: Atraumatic. Normocephalic. EYES: Pupils equal and round. No scleral icterus. No injection or drainage. ENT: No nasal bleeding or discharge. Mucous membranes pink and moist. Posterior pharynx with cobblestone appearance. No tonsillar hypertrophy, uvula is midline, airway is patent. NECK: Trachea midline. No JVD. CARDIOVASCULAR: Regular rate and rhythm. RESPIRATORY: No accessory muscle use. Clear to auscultation. Breath sounds equal bilaterally. No wheezes, rhonchi, rales noted. GASTROINTESTINAL: Abdomen soft, non-tender, nondistended. Hepatic and splenic margins not palpable. MUSCULOSKELETAL: Extremities without clubbing, cyanosis, or edema. No obvious deformities. NEUROLOGICAL: Awake and alert. No obvious cranial nerve deficits. Motor grossly within normal limits. Five out of 5 muscle strength in the arms and legs. Normal speech. PSYCHIATRIC: Appropriate mood and affect; insight and judgment normal. Data Data Last Documented VS Vital Signs Date Time Temp Pulse Resp B/P (MAP) Pulse Ox O2 Delivery O2 Flow Rate FiO2 03/05/18 19:58 98.6 72 16 122/57 (78) 98 [facility] Medical Decision Making Medical Screen Exam Complete: Yes Emergency Medical Condition: Yes Interpretation(s) Vital Signs Date Time Temp Pulse Resp B/P (MAP) Pulse Ox O2 Delivery O2 Flow Rate FiO2 03/05/18 19:58 98.6 72 16 122/57 (78) 98 Differential Diagnosis Asthma exacerbation versus bronchitis versus viral URI versus pharyngitis versus other Narrative Course Patient is well-appearing 62-year-old female presenting with 2 days of cold symptoms. Exam is consistent with a viral URI. Patient has normal vital signs , she is afebrile. She has not taken any acetaminophen or Motrin today. At this time patient was encouraged to continue conservative symptom management. She was encouraged to follow-up with her primary doctor or return to emergency department for any new or worsening symptoms. She verbalized understanding of instructions. Patient stable for discharge. Diagnosis Primary Impression: URI (upper respiratory infection) Qualified Codes: J06.9 - Acute upper respiratory infection, unspecified Referrals: Primary Care Physician 3 days Patient Instructions: General Instructions, Upper Respiratory Infection (ED) Additional Instructions: Follow-up with your primary doctor Continue symptom management as discussed Obtain [id number] Coricidin HBP and use as needed and as directed for congestion Return to emergency department for any new or worsening symptoms Continue to use albuterol inhaler and/or nebulizer as needed and as directed If you begin antibiotic, complete the full course even if you begin to feel better. Med/Other Pt SpecificInfo: Prescription(s) given Scripts Amoxicillin (Amoxicillin) 875 Mg Tab 875 MG PO BID for Infection for 10 Days, #20 TAB 0 Refills Prov: Ana Maria Francis 03/05/18 Disposition: 01 DISCHARGE HOME Condition: Stable Ana Maria Francis March 05, 2018 20:18
[2018-03-05] MEDS ORDERED: predniSONE 20 MG TAB PO ONE (20:30)
== END 2018-03-05 20:36 | disposition home or self-care (01) ==
LOC: NEPD 19:28
DX: J06.9 Acute upper respiratory infection, unspecified (principal); R51 Headache; J45.909 Unspecified asthma, uncomplicated; F32.9 Major depressive disorder, single episode, unspecified; I10 Essential (primary) hypertension; E07.9 Disorder of thyroid, unspecified; E11.9 Type 2 diabetes mellitus without complications; Z79.82 Long term (current) use of aspirin; Z79.899 Other long term (current) drug therapy
CPT/HCPCS: 99283; J7512

== ENCOUNTER 2018-07-28 23:11 | Observation (INO) ==
[2018-07-29 00:47] LABS: Baso % (Auto) 0.5 % (0.0-2.0); Eos # (Auto) 0.1 th/mm3 (0.0-0.4); Eos % (Auto) 1.7 % (0.0-4.0); Hematocrit 35.8 % (35.0-46.0); Hemoglobin 11.7 gm/dL (11.6-15.3); Lymph # (Auto) 2.1 th/mm3 (1.0-4.8); Lymph % (Auto) 39.2 % (9.0-44.0); Mean Corpuscular HGB Conc 32.8 % (32.0-36.0); Mean Corpuscular Volume 88.2 fL (80.0-100.0); Mean Platelet Volume 8.9 fL (7.0-11.0); Mono # (Auto) 0.5 th/mm3 (0.0-0.9); Mono % (Auto) 8.5 % (0.0-8.0); Neut # (Auto) 2.7 th/mm3 (1.8-7.7); Neut % (Auto) 50.1 % (16.0-70.0); Platelet Count 170 th/mm3 (150-450); Red Blood Count 4.06 mil/mm3 (4.00-5.30); White Blood Count 5.4 th/mm3 (4.0-11.0)
--- NOTE | 2018-07-29 00:53 | XR ---
EXAM DATE: 07/29/2018 12:32 AM EDT AGE/SEX: 63 years / Female INDICATIONS: Chest pain CLINICAL DATA: This is the patient's initial encounter. Patient reports that signs and symptoms have been present for 1 day and indicates a pain score of 6/10. MEDICAL/SURGICAL HISTORY: Hypertension. Asthma. Hyperparathyroidism. Diabetes mellitus type 2. . Cholecystectomy. Hysterectomy. Fusion L4-L5. COMPARISON: [facility] [place], CHEST SINGLE AP, 01/17/2017. . FINDINGS: A single AP view of the chest demonstrates the lungs to be symmetrically aerated without evidence of mass, infiltrate or effusion. The cardiomediastinal contours are unremarkable. Osseous structures a re intact. CONCLUSION: No evidence of acute cardiopulmonary disease. Electronically signed by: Nick Childers MD 07/29/2018 12:52 AM EDT
[2018-07-29 01:05] LABS: Alanine Aminotransferase 32 U/L (10-53); Albumin 3.6 g/dL (3.4-5.0); Anion Gap 11 meq/L (5-15); Aspartate Aminotransferase 37 U/L (15-37); Calcium 8.7 mg/dL (8.5-10.1); Carbon Dioxide 26.3 meq/L (21.0-32.0); Chloride 105 meq/L (98-107); Glomerular Filtration Rate 77 mL/min (>89); Glucose,Random 227 mg/dL (74-106); Potassium 3.3 meq/L (3.5-5.1); Sodium 142 meq/L (136-145)
[2018-07-29 01:10] LABS: Alkaline Phosphatase 79 U/L (45-117); Blood Urea Nitrogen 17 mg/dL (7-18); Total Protein 7.6 g/dL (6.4-8.2)
--- NOTE | 2018-07-29 01:33 | ED ---
HPI General Chief Complaint: Chest Pain Stated Complaint: chest pain/tired/high sugar Time Seen by Provider: 07/29/18 01:20 Source: patient Mode of arrival: ambulatory Limitations: no limitations History of Present Illness HPI narrative: 63-year-old female complains of chest pain. Patient states that she has history of recurrent chest pain for years. Patient had cardiac cath done in 2009 was normal. Patient states that she had chemical stress test done about 5 years ago it was normal also. Patient states that the chest pain is not associate with exertion. Patient states that the chest pain is pressure across the anterior chest. Patient denies any radiation. Patient denies palpitation. Patient states that she had nausea and chills with the chest pain. Patient states that the chest pain started about 9:00 this evening and has been persistent since then. Patient states that the chest and is better with lying down. Patient denies any coughing congestion fever chills. Patient has history hypertension, diabetes, hyperlipidemia. Patient has history of asthma. Patient is a non-smoker. Patient has family history of heart disease. complaint: chest pain STEMI Alert: No Onset (ago): hour(s) Duration: constant Onset: during rest Pain location: substernal Severity: mild Severity scale (1-10): 4 Quality: tightness and heaviness Pain radiation: none Relieving factors: nothing Exacerbating factors: nothing Associated symptoms: nausea Treatments prior to arrival chest pain: none Related Data Home Medications Medication Instructions Recorded Confirmed amlodipine 5 mg PO DAILY 07/28/18 07/28/18 aspirin [Aspir-81] 81 mg PO DAILY 07/28/18 07/28/18 citalopram 20 mg PO DAILY 07/28/18 07/28/18 esomeprazole magnesium 40 mg PO DAILY 07/28/18 07/28/18 levothyroxine 50 mcg PO DAILY 07/28/18 07/28/18 metformin 500 mg PO BID 07/28/18 07/28/18 Allergies Allergy/AdvReac Type Severity Reaction Status Date / Time morphine Allergy Mild RASH Verified 07/28/18 23:41 latex Allergy Unknown rash Verified 07/28/18 23:41 Review of Systems ROS: all other systems reviewed are negative [facility] Medical History Medical History Asthma (Acute) Diabetes (Acute) Hx of hysterectomy (Acute) Hypertension (Acute) Surgical History Surgical History Hx of cholecystectomy (Acute) Social History Social History Substance History: No History of Abuse Second Hand Smoke Exposure: No Smoking Status: Never smoker How Often Do You Have a Drink Containing Alcohol: Never Recent Travel in [facility] within the Last 8 Weeks: No Recent Out of Country Travel within the Last 8 Weeks: No Immunization History Tetanus Immunization: <5 Years Exam Narrative Exam Narrative: GENERAL: Well-nourished, well-developed patient. SKIN: Focused skin assessment warm/dry. HEAD: Normocephalic. EYES: No scleral icterus. No injection or drainage. NECK: Supple, trachea midline. No JVD or lymphadenopathy. CARDIOVASCULAR: Regular rate and rhythm without murmurs, gallops, or rubs. RESPIRATORY: Breath sounds equal bilaterally. No accessory muscle use. GASTROINTESTINAL: Abdomen soft, non-tender, nondistended. MUSCULOSKELETAL: No cyanosis, or edema. BACK: Nontender without obvious deformity. No CVA tenderness. Neurologic exam normal. Course Initial Documented Vital Signs Temperature 99.2 F 07/28/18 23:37 Pulse Rate 79 07/28/18 23:37 Respiratory Rate 16 07/28/18 23:37 Blood Pressure 159/71 H 07/28/18 23:37 Pulse Oximetry 97 07/28/18 23:37 Last Documented Vital Signs Temperature 99.2 F 07/28/18 23:37 Pulse Rate 70 07/28/18 23:55 Respiratory Rate 17 07/28/18 23:55 Blood Pressure 162/72 H 07/28/18 23:55 Pulse Oximetry 97 07/29/18 00:46 Medical Decision Making MDM Narrative Medical decision making narrative: 63-year-old female with recurrent chest pain. Patient will be admitted to the chest pain center. Medical Screen Exam Complete: Yes Emergency Medical Condition: Yes Differential Diagnosis Differential Diagnosis: Differential diagnosis including musculoskeletal, angina , KS, PE, pneumothorax. Lab Data Lab results reviewed: Yes I reviewed the patient's lab results. Result diagrams: 07/29/18 00:35 07/29/18 00:35 Lab Results 07/29/18 07/29/18 Range/Units 00:35 00:35 WBC 5.4 (4.0-11.0) th/mm3 RBC 4.06 (4.00-5.30) mil/mm3 Hgb 11.7 (11.6-15.3) gm/dL Hct 35.8 (35.0-46.0) % MCV 88.2 (80.0-100.0) fL MCH 29.0 (27.0-34.0) pg MCHC 32.8 (32.0-36.0) % RDW 13.0 (11.6-17.2) % Plt Count 170 (150-450) th/mm3 MPV 8.9 (7.0-11.0) fL Neut % (Auto) 50.1 (16.0-70.0) % Lymph % (Auto) 39.2 (9.0-44.0) % Cass % (Auto) 8.5 H (0.0-8.0) % Eos % (Auto) 1.7 (0.0-4.0) % Baso % (Auto) 0.5 (0.0-2.0) % Neut # (Auto) 2.7 (1.8-7.7) th/mm3 Lymph # (Auto) 2.1 (1.0-4.8) th/mm3 Cass # (Auto) 0.5 (0.0-0.9) th/mm3 Eos # (Auto) 0.1 (0.0-0.4) th/mm3 Baso # (Auto) 0.0 (0.0-0.2) th/mm3 WBC Differential . Differential Comment Auto diff final Sodium 142 (136-145) meq/L Potassium 3.3 L (3.5-5.1) meq/L Chloride 105 (98-107) meq/L Carbon Dioxide 26.3 (21.0-32.0) meq/L Anion Gap 11 (5-15) meq/L BUN 17 (7-18) mg/dL Creatinine 0.76 (0.50-1.00) mg/dL Estimated GFR 77 L (>89) mL/min Random Glucose 227 H (74-106) mg/dL Calcium 8.7 (8.5-10.1) mg/dL Total Bilirubin 0.2 (0.2-1.0) mg/dL AST 37 (15-37) U/L ALT 32 (10-53) U/L Alkaline Phosphatase 79 (45-117) U/L Troponin I Less than 0.02 L (0.02-0.05) ng/mL Total Protein 7.6 (6.4-8.2) g/dL Albumin 3.6 (3.4-5.0) g/dL Imaging Data Attestation: I personally reviewed and interpreted this imaging study as follows : Radiologist's impression: Chest X-Ray 07/29/18 00:32 CONCLUSION: No evidence of acute cardiopulmonary disease. Discharge Plan Discharge Disposition Patient Disposition: 30 Still Patient Discharge Details Diagnosis: Chest pain Physicians Team ED Provider: Gume Woody Primary Care Provider: UNKNOWN, Rxs /Orders / Referrals /Forms Prescriptions: No Action metformin 500 mg Tablet 500 mg PO BID RF: 0 amlodipine 5 mg Tablet 5 mg PO DAILY RF: 0 aspirin [Aspir-81] 81 mg Tablet,Delayed Release (Dr/Ec) 81 mg PO DAILY RF: 0 citalopram 20 mg Tablet 20 mg PO DAILY RF: 0 esomeprazole magnesium 40 mg Capsule,Delayed Release(Dr/Ec) 40 mg PO DAILY RF: 0 levothyroxine 50 mcg Capsule 50 mcg PO DAILY RF: 0 Discharge Instructions Patient Printed Instructions: Chest Pain (ED) Status ED Status: With Doctor
[2018-07-29 04:14] LABS: Creatine Kinase 135 U/L (26-192)
[2018-07-29] MEDS ORDERED: Acetaminophen 500 MG Tablet PO PRN (04:22)
[2018-07-29 07:17] LABS: Creatine Kinase 141 U/L (26-192)
--- NOTE | 2018-07-29 09:27 | P.HPCA ---
History of Present Illness Primary Care Physician: UNKNOWN Chief Complaint: Chest pain History of Present Illness: This is a 63-year-old female history of diabetes, hypertension, hyperlipidemia and hypothyroidism that presents to ED via private vehicle with a complaint of chest discomfort. Patient states that around 9:00 last night while doing some chores at her house she developed a sharp pain below each breast. Seems a little tender to the area when she would touch. Lasted 5-6 hours. She states she was short of breath and nauseous but denied diaphoresis. Patient states that she has chest pain quite often. She estimates she has chest pain 3 or 4 times a month and has had so for years. She states she has had this evaluated before. She had a heart catheterization was normal about 2009 while in [place]. States she had a chemical stress test 5 years ago that was normal. Upon reviewing records, she also had a nonischemic Lexiscan this facility December 2016. Currently denies chest discomfort denies recent illness. Denies fevers or chills. History of hypertension, hyperlipidemia, diabetes, hypothyroidism. Denies known CAD. Denies family history of CAD. Lifetime non-smoker. - Diagnosis (1) Chest pain (2) Hypertension (3) Hyperlipidemia (4) Diabetes Review of Systems General: Patient denies fevers, chills, and recent travel. HEENT: Patient denies headache, sore throat, difficulty swallowing. Cardiovascular: Has the chest discomfort as mentioned above. Denies sensation of heart beating rapidly or irregularly. No syncope. Denies diaphoresis. Respiratory: She was short of breath. Denies inspirational chest discomfort. Denies coughing wheezing or hemoptysis. GI: She was nauseous. Patient denies vomiting, diarrhea, abdominal pain, bloody stools. Musculoskeletal: Patient denies joint pain or edema. Denies calf pain or edema. Neurovascular: Patient denies numbness, tingling, weakness in extremities. Denies headache. Endocrine: Denies polyuria and polydipsia. Hematologic: Denies easy bruising. Skin: Denies rash or itching. PMFSH - History History Provided By: Patient - Medical History Medical History: Medical History (Last Reviewed 07/29/18 @ 01:31 by Gume Woody MD) Asthma Diabetes Hx of hysterectomy Hypertension - Surgical History Surgical History: Surgical History (Last Reviewed 07/29/18 @ 01:31 by Gume Woody MD) Hx of cholecystectomy - Tobacco History Second Hand Smoke Exposure: No Tobacco Use In Past 30 Days: No Smoking Status: Never smoker - Alcohol History How Often Do You Have a Drink Containing Alcohol: Never - Substance Use History Substance History: No History of Abuse - Travel History Recent Travel in the [place] Within the Last 8 Weeks: No Recent Travel Out of the Country Within the Last 8 Weeks: No - Immunization History Tetanus Immunization: <5 Years Medications and Allergies Active Medications: Active Medications Acetaminophen (Tylenol) 500 mg PO Q4H PRN PRN Reason: HEADACHE Insulin Human Regular (Novolin R Correctional Sugar Inj) 0 units SQ ACHS CRYSTAL; Protocol Ondansetron HCl (Zofran Inj) 4 mg IV.PUSH Q4H PRN PRN Reason: NAUSEA Last Admin: 07/29/18 04:48 Dose: 4 mg Sodium Chloride (Ns Flush) 2 ml IV.FLUSH PRN PRN PRN Reason: FLUSH AFTER USING IV ACCESS Sodium Chloride (Ns Flush) 2 ml IV.FLUSH BID CRYSTAL Allergies Allergy/AdvReac Type Severity Reaction Status Date / Time morphine Allergy Mild RASH Verified 07/28/18 23:41 latex Allergy Unknown rash Verified 07/28/18 23:41 Home Medications Medication Instructions Recorded Confirmed Type amlodipine 5 mg PO DAILY 07/28/18 07/28/18 History aspirin [Aspir-81] 81 mg PO DAILY 07/28/18 07/28/18 History citalopram 20 mg PO DAILY 07/28/18 07/28/18 History esomeprazole magnesium 40 mg PO DAILY 07/28/18 07/28/18 History levothyroxine 50 mcg PO DAILY 07/28/18 07/28/18 History metformin 500 mg PO BID 07/28/18 07/28/18 History Exam Vital signs: Vital Signs 07/28/18 23:37 07/28/18 23:55 07/29/18 00:46 Temperature 99.2 F Pulse Rate 79 70 Respiratory Rate 16 17 Blood Pressure 159/71 H 162/72 H Pulse Oximetry 97 98 97 07/29/18 03:01 07/29/18 05:54 07/29/18 07:36 Temperature 98.0 F 97.9 F Pulse Rate 61 59 L 57 L Respiratory Rate 19 16 Blood Pressure 130/63 130/62 Pulse Oximetry 95 97 07/29/18 07:52 Temperature Pulse Rate 61 Respiratory Rate Blood Pressure Pulse Oximetry Intake & Output 07/28/18 07/29/18 07/29/18 18:59 06:59 18:59 Intake Total 0 / 0 Balance 0 / 0 Weight 69.4 kg Intake: Oral 0 / 0 Other: # Voids 0 Date of Last Bowel Movement 07/28/18 Narrative: GENERAL: This is a well-nourished, well-developed patient, in no apparent distress. Patient speaks in clear complete sentences. Patient is pleasant. HEENT: Head is atraumatic and normocephalic. Neck is supple without lymphadenopathy and trachea is midline. No JVD or carotid bruits. CARDIOVASCULAR: Regular rate and rhythm without murmurs, gallops, or rubs. RESPIRATORY: Clear to auscultation. Breath sounds equal bilaterally. No wheezes , rales, or rhonchi. Chest wall is nontender. No use of accessory muscles. GASTROINTESTINAL: Abdomen is nontender, nondistended. Abdomen soft. No obvious pulsatile mass or bruit. No CVA tenderness. Strong femoral pulses bilaterally. Normal bowel sounds in all quadrants. MUSCULOSKELETAL: Patient is moving upper and lower extremities freely. No calf tenderness or edema, no Homans sign. Strong pulses in upper and lower extremities. NEUROLOGICAL: Patient is alert and oriented. Cranial nerves 2-12 are grossly intact. No focal deficits and speech is clear. SKIN: No rash and turgor is normal. Results 07/29/18 00:35 07/29/18 00:35 Cardiac Enzymes 07/29/18 07/29/18 07/29/18 Range/Units 00:35 03:15 06:35 AST 37 (15-37) U/L Troponin I Less than 0.02 L Less than 0.02 L Less than 0.02 L (0.02-0.05) ng/mL CBC 07/29/18 Range/Units 00:35 WBC 5.4 (4.0-11.0) th/mm3 RBC 4.06 (4.00-5.30) mil/mm3 Hgb 11.7 (11.6-15.3) gm/dL Hct 35.8 (35.0-46.0) % Plt Count 170 (150-450) th/mm3 Neut # (Auto) 2.7 (1.8-7.7) th/mm3 Lymph # (Auto) 2.1 (1.0-4.8) th/mm3 [place] # (Auto) 0.5 (0.0-0.9) th/mm3 Eos # (Auto) 0.1 (0.0-0.4) th/mm3 Baso # (Auto) 0.0 (0.0-0.2) th/mm3 Comprehensive Metabolic Panel 07/29/18 Range/Units 00:35 Sodium 142 (136-145) meq/L Potassium 3.3 L (3.5-5.1) meq/L Chloride 105 (98-107) meq/L Carbon Dioxide 26.3 (21.0-32.0) meq/L BUN 17 (7-18) mg/dL Creatinine 0.76 (0.50-1.00) mg/dL Calcium 8.7 (8.5-10.1) mg/dL AST 37 (15-37) U/L ALT 32 (10-53) U/L Alkaline Phosphatase 79 (45-117) U/L Total Protein 7.6 (6.4-8.2) g/dL Albumin 3.6 (3.4-5.0) g/dL Intake and Output 07/28/18 07/29/18 07/29/18 22:59 06:59 14:59 Intake Total 0 / 0 Balance 0 / 0 Intake: Oral 0 / 0 Other: # Voids 0 Date of Last Bowel Movement 07/28/18 Weight 69.4 kg - Imaging and Cardiology Imaging: Impressions Chest X-Ray 07/29/18 00:32 CONCLUSION: No evidence of acute cardiopulmonary disease. EKG interpretations - EKG EKG shows: sinus rhythm (EKGs are sinus rhythm with generalized T wave changes. These are on prior EKGs as well.) Caprini VTE Risk Assessment Caprini VTE Risk Assessment: Moderate/High Risk (score >= 2) Caprini Risk Assessment Model: Point Value = 1 Point Value = 2 Point Value = 3 Point Value = 5 Age 41-60 Minor surgery BMI > 25 kg/m2 Swollen legs Varicose veins or History of unexplained or recurrent spontaneous Oral contraceptives or hormone replacement Sepsis (< 1 month) Serious lung disease, including pneumonia (< 1 month) Abnormal pulmonary function Acute myocardial infarction Congestive heart failure (< 1 month) History of inflammatory bowel disease Medical patient at bed rest Age 61-74 Arthroscopic surgery Major open surgery (> 45 min) Laparoscopic surgery (> 45 min) Malignancy Confined to bed (> 72 hours) Immobilizing plaster cast Central venous access Age >= 75 History of VTE Family history of VTE Factor V Leiden Prothrombin [id number] Lupus anticoagulant Anticardiolipin antibodies Elevated serum homocysteine Heparin-induced thrombocytopenia Other congenital or acquired thrombophilia Stroke (< 1 month) Elective arthroplasty Hip, pelvis, or leg fracture Acute spinal cord injury (< 1 month) Prophylaxis Regimen: Total Risk Factor Score Risk Level Prophylaxis Regimen 0-1 Low Early ambulation 2 Moderate Order ONE of the following: *Sequential Compression Device (SCD) *Heparin 5000 units SQ BID 3-4 Higher Order ONE of the following medications: *Heparin 5000 units SQ TID *Enoxaparin/Lovenox 40 mg SQ daily (WT < 150 kg, CrCl > 30 mL/min) *Enoxaparin/Lovenox 30 mg SQ daily (WT < 150 kg, CrCl > 10-29 mL/min) *Enoxaparin/Lovenox 30 mg SQ BID (WT < 150 kg, CrCl > 30 mL/min) AND/OR *Sequential Compression Device (SCD) 5 or more Highest Order ONE of the following medications: *Heparin 5000 units SQ TID (Preferred with Epidurals) *Enoxaparin/Lovenox 40 mg SQ daily (WT < 150 kg, CrCl > 30 mL/min) *Enoxaparin/Lovenox 30 mg SQ daily (WT < 150 kg, CrCl > 10-29 mL/min) *Enoxaparin/Lovenox 30 mg SQ BID (WT < 150 kg, CrCl > 30 mL/min) AND *Sequential Compression Device (SCD) Assessment and Plan - Assessment (1) Chest pain Code(s): R07.9 - Chest pain, unspecified Status: Acute (2) Hypertension Code(s): I10 - Essential (primary) hypertension Status: Acute (3) Hyperlipidemia Code(s): E78.5 - Hyperlipidemia, unspecified Status: Acute (4) Diabetes Code(s): E11.9 - Type 2 diabetes mellitus without complications Status: Acute - Plan * Chest pain: Patient has had serial cardiac enzymes and EKGs for ruling out purposes. She will be seen by Dr. Nelson cardiology in the chest pain center. She will undergo a Lexiscan and if nonischemic will be discharged home with instructions to follow-up with PCP. Return to ED for interval issues. * Diabetes: Patient will be on sliding scale insulin coverage while in chest pain center. She is to follow diabetic diet. Resume medication at discharge. She should also discuss being on statin therapy and JUAN inhibitor therapy with her PCP with her history of diabetes. * Hyperlipidemia: Patient is not on statin therapy at this time and really does not know why. She should discuss this with her PCP. * Hypertension: Continue medication. Patient is stable at this time. She is agreeable to this plan. H&P: Quality - VTE Deep Vein Thrombosis/Pulmonary Embolism Present on Admission: No (1) Chest pain Qualifiers: Chest pain type: unspecified Qualified Code(s): R07.9 - Chest pain, unspecified
[2018-07-29] MEDS ORDERED: Citalopram 20 MG Tablet PO SCH (09:30)
[2018-07-29] MEDS ORDERED: amLODIPine 5 MG Tablet PO SCH (09:30)
[2018-07-29] MEDS ORDERED: Aspirin 325 MG Tablet PO SCH (09:30)
[2018-07-29] MEDS ORDERED: Levothyroxine 50 MCG Tablet PO SCH (09:45)
[2018-07-29 11:29] VITALS: BP 141/70; PULSE 57; RESP 12; TEMP 97.7; O2SAT 98
[2018-07-29] MEDS ORDERED: Insulin NovoLIN Regular Correctional Sugar Inj SQ SCH (12:00)
--- NOTE | 2018-07-29 12:24 | ECG ---
Date Performed: 07/29/2018 Time Performed: 04:04:56 PTAGE: 63 years EKG: SINUS BRADYCARDIA MODERATE T-WAVE ABNORMALITY, nonspecific. ABNORMAL ECG PREVIOUS TRACING : 07/29/2018 00.34 Since previous tracing, no significant change noted DOCTOR: Daryl Nelson Interpretating Date/Time 07/29/2018 12:24:11
--- NOTE | 2018-07-29 12:24 | ECG ---
Date Performed: 07/29/2018 Time Performed: 04:58:28 PTAGE: 63 years EKG: SINUS BRADYCARDIA MODERATE T-WAVE ABNORMALITY, nonspecific. ABNORMAL ECG PREVIOUS TRACING : 07/29/2018 04.04 Since previous tracing, no significant change noted DOCTOR: Daryl Nelson Interpretating Date/Time 07/29/2018 12:23:29
--- NOTE | 2018-07-29 12:25 | ECG ---
Date Performed: 07/29/2018 Time Performed: 00:34:46 PTAGE: 63 years EKG: Sinus rhythm MODERATE T-WAVE ABNORMALITY, nonspecific. ABNORMAL ECG PREVIOUS TRACING : 01/17/2017 12.56 DOCTOR: Daryl Nelson Interpretating Date/Time 07/29/2018 12:24:43
--- NOTE | 2018-07-29 12:27 | ECG ---
Date Performed: 07/29/2018 Time Performed: 06:42:09 PTAGE: 63 years EKG: SINUS BRADYCARDIA MODERATE T-WAVE ABNORMALITY, nonspecific. ABNORMAL ECG PREVIOUS TRACING : 07/29/2018 04.58 DOCTOR: Daryl Nelson Interpretating Date/Time 07/29/2018 12:25:12
[2018-07-29] MEDS ORDERED: Regadenoson Inj 0.4 MG/5 ML Syringe IV.PUSH ONE (12:28)
--- NOTE | 2018-07-29 13:42 | NM ---
EXAM DATE: 07/29/2018 11:59 AM EDT AGE/SEX: 63 years / Female INDICATIONS:Angina. . Substernal chest pain with nausea. CLINICAL DATA: This is the patient's initial encounter. Patient reports that signs and symptoms have been present for 1 day and indicates a pain score of 5/10. MEDICAL/SURGICAL HISTORY: Diabetes mellitus type II. Hypertension. Hysterectomy. Cholecystect ethel. [place] [facility] [place]/29[place]. . DOSE: 8.6 mCi Tc 99m Myoview at rest 26.3 mCi [id number] at stress 0.4 mg Lexiscan STRESS SYMPTOMS: Dyspnea. EJECTION FRACTION: 64 % TECHNIQUE: The patient underwent pharmacologic stress with infusion of prescribed dose. Continuous ECG tracing was monitored during stress. Gated SPECT imaging was performed after stress and conventi onal SPECT imaging was performed at rest. The examination was performed on a SPECT/CT scanner, both attenuation and non-corrected datasets were reviewed. FINDINGS: Distribution: The maximum perfused segment at stress is in the anterolateral wall. Perfusion Study: The pattern of perfusion at stress is within normal limits. Gated Study: There are intact wall motion and wall thickening without hypokinetic or dyskinetic segm ents. The ejection fraction is calculated at 64%. RISK CATEGORY: Low (<1% Annual Motality Rate) CONCLUSION: 1. No significant stress-induced ischemia. 2. Intact wall motion with EF of 64%. Electronically signed by: Zev Gonzalez MD 07/29/2018 1:41 PM EDT
--- NOTE | 2018-07-30 11:10 | TR ---
Date Performed: 07/29/2018 Time Performed: 12:33:48 DOCTOR: Daryl Nelson DRUG LIST: CLINICAL HISTORY: REASON FOR TEST: CHEST PAIN REASON FOR ENDING: OBSERVATION: CONCLUSION: COMMENTS: Lexiscan stress test was performed under standard four minute protocol. Radionuclide was injected one minute prior to ending the test. No electrocardiographic abormalities were present t o suggest ischemia. Nuclear imaging and interpretation are pending.
== END 2018-07-29 15:44 | disposition home or self-care (01) ==
LOC: NEPE 23:11 → NEDA 23:11 → NEPHCDU 07-29 02:54